=== PATIENT | female | born 1965 | race Caucasian/White ===

== ENCOUNTER 2017-06-14 08:00 | Outpatient (CLI) | payer OTHER | END 2017-06-14 08:01 | disposition home or self-care (01) | LOC: BICMAMMO 08:00 | PROVIDERS: ATTEND Obstetrics & Gynecology | DX: R92.8 Other abnormal and inconclusive findings on diagnostic imaging of breast (principal) | CPT/HCPCS: 77066; G0279 ==

== ENCOUNTER 2018-06-19 14:14 | Outpatient (CLI) | payer OTHER | END 2018-06-19 14:15 | disposition home or self-care (01) | LOC: BICMAMMO 14:14 | PROVIDERS: ATTEND Obstetrics & Gynecology | DX: R92.8 Other abnormal and inconclusive findings on diagnostic imaging of breast (principal) | CPT/HCPCS: 77066; G0279 ==

== ENCOUNTER 2020-08-20 07:56 | Outpatient (CLI) | payer BC | END 2020-08-20 07:57 | disposition home or self-care (01) | LOC: SCSMRI 07:56 | PROVIDERS: ATTEND Anesthesiology Pain Medicine | DX: M48.02 Spinal stenosis, cervical region (principal); M47.812 Spondylosis without myelopathy or radiculopathy, cervical region | CPT/HCPCS: 72141 ==

== ENCOUNTER 2020-11-29 09:46 | Outpatient (CLI) | payer BC ==
[2020-11-29 11:51] LABS: #Basophils 0.1 10x3/uL (0.0-0.2); #Eosinphils 0.3 10x3/uL (0.0-0.5); #Neutrophils 7.1 10x3/uL (1.5-8.4); %Basophils 0.9 % (0.0-2.0); %Eosinophils 2.6 % (0.0-6.0); %Lymphocytes 18.7 % (18.0-47.0); %Monocytes 9.8 % (0.0-10.0); Hemoglobin 13.2 g/dL (12.0-15.5); Mean Corpuscular HGB CONC 31.3 g/dL (32.0-36.0); Mean Corpuscular Hemoglobin 30.4 pg (27.0-33.0); Mean Corpuscular Volume 97.2 fl (81.6-98.3); Mean Platelet Volume 10.6 fl (7.4-10.4); Platelet Count 405 10x3/uL (150-450); RBC Distribution Width 14.8 % (11.5-14.5); Red Blood Cell (RBC) Count 4.34 10x6/uL (3.90-5.03); White Blood Cell (WBC) Count 10.5 10x3/uL (3.5-10.5)
[2020-11-29 11:59] LABS: PTT 23.6 sec (22.0-33.0); Prothrombin Time 10.8 sec (9.5-12.1)
[2020-11-29 12:08] LABS: Anion Gap 17 mmol/L (10-20); BUN (Urea Nitrogen) 20 mg/dL (9.8-20.1); Calc. Creatinine Clearance 0 mL/min (70-130); Calcium 10.3 mg/dL (7.8-10.44); Carbon Dioxide 27 mmol/L (22-29); Chloride 102 mmol/L (98-107); Glucose 124 mg/dL (70-105); Sodium 142 mmol/L (136-145)
== END 2020-11-29 09:47 | disposition home or self-care (01) ==
LOC: LABBT 09:46
PROVIDERS: ATTEND Neurological Surgery
DX: Z01.818 Encounter for other preprocedural examination (principal); M50.022 Cervical disc disorder at C5-C6 level with myelopathy
CPT/HCPCS: 80048; 85025; 85610; 85730; 93005; 93010

== ENCOUNTER 2020-12-02 10:56 | Day surgery (SDC) | payer BC ==
[2020-12-01 10:09] VITALS: BMI 53.1
[2020-12-02] MEDS ORDERED: Thrombin 5000 UNITS/5 ML VIAL ONE (11:36)
[2020-12-02] MEDS ORDERED: Fentanyl 100 MCG/2 ML VIAL ONE ×3 (13:02→17:41)
[2020-12-02] MEDS ORDERED: SUGAMMADEX SODIUM 200 MG/2 ML VIAL ONE (14:19)
[2020-12-02] MEDS ORDERED: Acetaminophen/Codeine 30-300mg Tablet PO PRN ×2 (18:09)
[2020-12-02] MEDS ORDERED: Ondansetron PF 4 MG/2 ML Vial IVP PRN (18:09)
[2020-12-02] MEDS ORDERED: Promethazine HCl 25 MG/ML VIAL IM PRN (18:09)
[2020-12-02] MEDS ORDERED: tiZANidine HCl 4 MG TAB PO PRN (18:09)
[2020-12-02] MEDS ORDERED: Promethazine HCl 12.5 MG SUPP PR PRN (18:09)
[2020-12-02] MEDS ORDERED: Promethazine 25 MG TAB PO PRN (18:09)
[2020-12-02] MEDS ORDERED: Morphine 2 MG/ML VIAL SLOW IVP PRN (18:09)
[2020-12-02] MEDS ORDERED: Sodium Chloride 0.9% 1,000 ML IV SCH (18:15)
[2020-12-02] MEDS ORDERED: tiZANidine HCl 4 MG TAB ONE (18:47)
[2020-12-02] MEDS ORDERED: CEFAZOLIN 2 GM in Premix Bag 1 BAG IVPB SCH (22:00)
== END 2020-12-02 20:11 | disposition home or self-care (01) ==
LOC: SDC 10:56
PROVIDERS: ATTEND Neurological Surgery
PROC: 0RG2070 Fusion of 2 or more Cervical Vertebral Joints with Autologous Tissue Substitute, Anterior Approach, Anterior Column, Open Approach (ICD-10-PCS; principal; 2020-12-02)
PROC: 0RT30ZZ Resection of Cervical Vertebral Disc, Open Approach (ICD-10-PCS; principal; 2020-12-02)
PROC: 0RG20A0 Fusion of 2 or more Cervical Vertebral Joints with Interbody Fusion Device, Anterior Approach, Anterior Column, Open Approach (ICD-10-PCS; principal; 2020-12-02)
DX: M50.022 Cervical disc disorder at C5-C6 level with myelopathy (principal); M50.122 Cervical disc disorder at C5-C6 level with radiculopathy; G89.29 Other chronic pain; M54.9 Dorsalgia, unspecified; Z79.84 Long term (current) use of oral hypoglycemic drugs; Z79.899 Other long term (current) drug therapy
CPT/HCPCS: 76000; C1713; C1776; J0690; J3010; J3370; J3490

== ENCOUNTER 2021-01-21 14:43 | Outpatient (CLI) | payer BC | END 2021-01-21 14:44 | disposition home or self-care (01) | LOC: TBSIIMAG 14:43 | PROVIDERS: ATTEND Neurological Surgery | DX: M50.10 Cervical disc disorder with radiculopathy, unspecified cervical region (principal); Z98.1 Arthrodesis status | CPT/HCPCS: 72040 ==

== ENCOUNTER 2021-04-11 15:26 | Outpatient (CLI) | payer BC ==
[2021-04-12 08:17] LABS: SARS-CoV-2 PCR by NAA Not Detected (NotDetected)
== END 2021-04-11 15:27 | disposition home or self-care (01) ==
LOC: LABBT 15:26
PROVIDERS: ATTEND Internal Medicine
DX: Z01.812 Encounter for preprocedural laboratory examination (principal); M50.10 Cervical disc disorder with radiculopathy, unspecified cervical region; Z20.822 Contact with and (suspected) exposure to COVID-19
CPT/HCPCS: U0003; U0005

== ENCOUNTER 2021-04-14 05:42 | Day surgery (SDC) | payer BC ==
[2021-04-13 12:41] VITALS: BMI 49.1
[2021-04-14] MEDS ORDERED: PROPOFOL 200 MG/20 ML VIAL ONE (08:32)
== END 2021-04-14 09:28 | disposition home or self-care (01) ==
LOC: SDC 05:42
PROVIDERS: ATTEND Internal Medicine
PROC: 0DJ08ZZ Inspection of Upper Intestinal Tract, Via Natural or Artificial Opening Endoscopic (ICD-10-PCS; principal; 2021-04-14)
DX: K22.10 Ulcer of esophagus without bleeding (principal); N83.8 Other noninflammatory disorders of ovary, fallopian tube and broad ligament; I10 Essential (primary) hypertension; Z79.899 Other long term (current) drug therapy; Z91.048 Other nonmedicinal substance allergy status
CPT/HCPCS: J2704

== ENCOUNTER 2021-05-20 10:53 | Outpatient (CLI) | payer BC | END 2021-05-20 10:54 | disposition home or self-care (01) | LOC: BICULT 10:53 | PROVIDERS: ATTEND Family Medicine | DX: T14.8XXA Other injury of unspecified body region, initial encounter (principal); S80.10XA Contusion of unspecified lower leg, initial encounter | CPT/HCPCS: 76999 ==

== ENCOUNTER 2022-04-14 13:44 | Outpatient (CLI) | payer BC | END 2022-04-14 13:45 | disposition home or self-care (01) | LOC: ULT 13:44 | PROVIDERS: ATTEND Family Medicine | DX: E04.2 Nontoxic multinodular goiter (principal) | CPT/HCPCS: 76536 ==

== ENCOUNTER 2022-05-24 12:27 | Day surgery (SDC) | payer BC ==
[2022-05-23 12:26] VITALS: BMI 52.3
[~2022-05-24 12:27] MED LIST: FLU VACC QS2022-23(6MOS UP)/PF 60 MCG/0.5 ML SYRINGE IM ONE
[2022-05-24] MEDS ORDERED: Sodium Bicarbonate 2.5 MEQ/5 ML VIAL ONE (12:31)
[2022-05-24] MEDS ORDERED: Lidocaine 2% PF 5 ML VIAL ONE (12:31)
== END 2022-05-24 13:57 | disposition home or self-care (01) ==
LOC: ULT 12:27
PROVIDERS: ATTEND Family Medicine
PROC: 0G9G3ZX Drainage of Left Thyroid Gland Lobe, Percutaneous Approach, Diagnostic (ICD-10-PCS; principal; 2022-05-24)
DX: E04.1 Nontoxic single thyroid nodule (principal); G47.33 Obstructive sleep apnea (adult) (pediatric); G56.01 Carpal tunnel syndrome, right upper limb; M77.12 Lateral epicondylitis, left elbow; I10 Essential (primary) hypertension; E11.9 Type 2 diabetes mellitus without complications; E78.00 Pure hypercholesterolemia, unspecified; Z79.1 Long term (current) use of non-steroidal anti-inflammatories (NSAID); Z79.84 Long term (current) use of oral hypoglycemic drugs; Z79.899 Other long term (current) drug therapy; Z91.048 Other nonmedicinal substance allergy status
CPT/HCPCS: 10005; 88173; J2001

== ENCOUNTER 2022-06-19 18:00 | Outpatient (CLI) | payer BC | END 2022-06-19 18:01 | disposition home or self-care (01) | LOC: SLEEPLAB 18:00 | PROVIDERS: ATTEND Family Medicine | DX: G47.33 Obstructive sleep apnea (adult) (pediatric) (principal); R53.83 Other fatigue; I10 Essential (primary) hypertension; G47.00 Insomnia, unspecified; F41.9 Anxiety disorder, unspecified; F32.9 Major depressive disorder, single episode, unspecified; E11.9 Type 2 diabetes mellitus without complications; E66.2 Morbid (severe) obesity with alveolar hypoventilation; Z68.43 Body mass index [BMI] 50.0-59.9, adult | CPT/HCPCS: 95800 ==

== ENCOUNTER 2022-08-16 15:33 | Outpatient (CLI) | payer BC ==
[2022-08-16 16:20] LABS: #Basophils 0.1 10x3/uL (0.0-0.2); #Eosinphils 0.3 10x3/uL (0.0-0.5); #Monocytes 1.1 10x3/uL (0.0-1.1); #Neutrophils 6.4 10x3/uL (1.5-8.4); %Basophils 0.9 % (0.0-2.0); %Eosinophils 2.5 % (0.0-6.0); %Lymphocytes 24.6 % (18.0-47.0); %Monocytes 10.3 % (0.0-10.0); %Neutrophils 60.8 % (40.0-75.0); Hemoglobin 13.5 g/dL (12.0-15.5); Mean Corpuscular HGB CONC 31.8 g/dL (32.0-36.0); Mean Corpuscular Hemoglobin 29.7 pg (27.0-33.0); Mean Corpuscular Volume 93.4 fl (81.6-98.3); Mean Platelet Volume 10.2 fl (7.4-10.4); Platelet Count 453 10x3/uL (150-450); Red Blood Cell (RBC) Count 4.55 10x6/uL (3.90-5.03); White Blood Cell (WBC) Count 10.5 10x3/uL (3.5-10.5)
== END 2022-08-16 15:34 | disposition home or self-care (01) ==
LOC: LABBT 15:33
PROVIDERS: ATTEND Orthopaedic Surgery Hand Surgery
DX: Z01.818 Encounter for other preprocedural examination (principal); G56.02 Carpal tunnel syndrome, left upper limb
CPT/HCPCS: 85025; 93005; 93010

== ENCOUNTER 2022-08-28 11:35 | Day surgery (SDC) | payer BC ==
[2022-08-15 09:26] VITALS: BMI 56.7
[2022-08-28] MEDS ORDERED: Bacitracin Zinc Ointment 30 gm TUBE ONE (13:07)
[2022-08-28] MEDS ORDERED: Lidocaine 1% (PF) 30 ML VIAL ONE (13:07)
[2022-08-28] MEDS ORDERED: fentaNYL PF 100 MCG/2 ML SYRINGE ONE (13:24)
[2022-08-28] MEDS ORDERED: Midazolam HCl 2 mg/2 ml Vial ONE (13:24)
[2022-08-28] MEDS ORDERED: CEFAZOLIN 2 GM VIAL ONE (13:36)
[2022-08-28] MEDS ORDERED: Sodium Chloride 0.9% 100 ML ONE (13:36)
[2022-08-28] MEDS ORDERED: Dexamethasone 20 MG/5 ML VIAL ONE (14:20)
[2022-08-28] MEDS ORDERED: PROPOFOL 200 MG/20 ML VIAL ONE (14:20)
[2022-08-28] MEDS ORDERED: Ondansetron PF 4 MG/2 ML Vial ONE (14:20)
[2022-08-28] MEDS ORDERED: Lidocaine 1% PF 5 ML VIAL ONE (14:20)
[2022-08-28] MEDS ORDERED: Bupivacaine PF 0.5% 30 ML VIAL ONE (14:39)
[2022-08-28] MEDS ORDERED: Ketorolac Tromethamine 30 MG/ML VIAL ONE ×2 (15:26)
== END 2022-08-28 17:02 | disposition home or self-care (01) ==
LOC: SDC 11:35
PROVIDERS: ATTEND Orthopaedic Surgery Hand Surgery
PROC: 01N50ZZ Release Median Nerve, Open Approach (ICD-10-PCS; principal; 2022-08-28)
DX: G56.03 Carpal tunnel syndrome, bilateral upper limbs (principal); E11.9 Type 2 diabetes mellitus without complications; Z79.84 Long term (current) use of oral hypoglycemic drugs; Z79.899 Other long term (current) drug therapy; Z91.048 Other nonmedicinal substance allergy status
CPT/HCPCS: J1100; J1885; J2001; J2250; J2405; J2704; J3490; S0020

== ENCOUNTER 2023-12-18 10:29 | Outpatient (CLI) | payer BC | END 2023-12-18 10:30 | disposition home or self-care (01) | LOC: BICULT 10:29 | PROVIDERS: ATTEND Nurse Practitioner Family | DX: M79.89 Other specified soft tissue disorders (principal) | CPT/HCPCS: 76999 ==